=== PATIENT | female | born 1995 | race Caucasian/White ===

== ENCOUNTER 2025-04-18 19:13 | Inpatient (IN) | payer OTHER, SELFPAY ==
[2025-04-18 19:49] VITALS: BP 126/75; BMI 33.0
[2025-04-18] MEDS: PENICILLIN 110 UNITS IV (20:12)
[2025-04-18] MEDS: LR 1000 IV (20:12)
[2025-04-18 20:18] LABS: % Basophils 0.3 % (0-2); % Eosinophils 0.6 % (0-6); % Immature Granulocytes 0.7 % (0-0.5); % Lymphocytes 14.9 % (20.5-51.1); % Monocytes 10.2 % (1.7-9.3); % Neutrophils 73.3 % (42.2-75.2); Absolute Eosinophils 0.1 10^3/uL (0-0.7); Absolute Immature Granulocytes 0.1 10^3/uL (0-0.05); Absolute Lymphocytes 1.6 10^3/uL (1.2-3.4); Absolute Monocytes 1.1 10^3/uL (0.1-0.6); Absolute Neutrophils 7.8 10^3/uL (1.4-6.5); Hematocrit 35.4 % (37.0-47.0); Hemoglobin 12.6 g/dL (12.0-16.0); Mean Corp Hgb Conc. 35.6 g/dL (33.0-37.0); Mean Corpuscular Hgb 32.3 pg (27.0-31.0); Mean Corpuscular Volume 90.8 fL (81.0-99.0); Mean Platelet Volume 10.2 fL (7.4-10.4); Nucleated Red Blood Cells % 0 %; Platelet Count 191 10^3/uL (130-400); Red Cell Dist. Width 12.5 % (11.5-14.5); White Blood Cell Count 10.6 10^3/uL (4.8-10.8)
[2025-04-19] MEDS: PENICILLIN 55 UNITS IV ×5 (00:15→16:16)
[2025-04-19] MEDS: SUBLIMAZE 100 MCG EPIDURAL (03:01)
[2025-04-19] MEDS: FENTANYL/BUPIVACAINE 100 EPIDURAL ×3 (03:02→15:34)
[2025-04-19] MEDS: LR 1000 IV ×2 (03:25→13:54)
[2025-04-19] MEDS: PITOCIN 30 UNITS/NSS 500 ML IV (13:54)
[2025-04-19] MEDS: ANCEF 10 IV (17:16)
[2025-04-19] MEDS: BICITRA 30 ML PO (17:16)
[2025-04-19] MEDS: TYLENOL 1000 MG PO (17:16)
[2025-04-19] MEDS: TORADOL 15 MG IV (20:01)
[2025-04-19] MEDS: FLUSH (NSS) 2 FLUSH IV (20:02)
[2025-04-20] MEDS: TORADOL 15 MG IV ×3 (01:55→14:16)
[2025-04-20 04:51] LABS: Hematocrit 29.2 % (37.0-47.0); Hemoglobin 10.3 g/dL (12.0-16.0); Mean Corp Hgb Conc. 35.3 g/dL (33.0-37.0); Mean Corpuscular Hgb 32.5 pg (27.0-31.0); Mean Corpuscular Volume 92.1 fL (81.0-99.0); Mean Platelet Volume 10.1 fL (7.4-10.4); Platelet Count 155 10^3/uL (130-400); Red Blood Cell Count 3.17 10^6/uL (4.20-5.40); Red Cell Dist. Width 12.5 % (11.5-14.5); White Blood Cell Count 16.8 10^3/uL (4.8-10.8)
[2025-04-20] MEDS: SENOKOT-S 1 TABLET PO (08:21)
[2025-04-20] MEDS: PRENATAL PLUS 1 TABLET PO (08:21)
--- NOTE | 2025-04-20 13:13 | W.PN.ANS.POP ---
Anesthesia Post Operative
- Anesthesia Post Op Note
Vital Signs Stable-See Nursing Note: Yes
Airway Patent: Yes
Adequate Pain Control: Yes
Change in Mental Status: No
Current Postoperative Nausea & Vomiting: No
Anesthesia Complications: No
General Anesthetic Recall: No
Unplanned Admission: No
Post Op Hydration Adequate: Yes
[2025-04-20 13:34] LABS: Syphilis/T. pallidum Ab Reflex Negative (Negative)
[2025-04-20] MEDS: TORADOL IV (20:27)
[2025-04-20] MEDS: MOTRIN 600 MG PO (20:49)
[2025-04-21] MEDS: TYLENOL 650 MG PO ×6 (00:55→23:15)
[2025-04-21] MEDS: MOTRIN 600 MG PO ×4 (02:49→23:15)
[2025-04-21] MEDS: SENOKOT-S 1 TABLET PO (09:05)
[2025-04-21] MEDS: MYLICON 80 MG PO (09:05)
[2025-04-21] MEDS: PRENATAL PLUS 1 TABLET PO (09:06)
[2025-04-22] MEDS: MOTRIN 600 MG PO (05:55)
[2025-04-22] MEDS: TYLENOL 650 MG PO (05:55)
[2025-04-22] MEDS: PRENATAL PLUS 1 TABLET PO (07:36)
[2025-04-22] MEDS: SENOKOT-S 1 TABLET PO (07:36)
--- NOTE | 2025-04-22 10:58 | W.DS.TRANS ---
DC Summary - [facility]
-
Discharge Instructions:
Discharge Diagnosis/Procedures delivered via section
Diet No restrictions
Activity No strenuous activity
Driving Restrictions No driving for 2 weeks
Bathing Restrictions OK to Shower
Instructions:
Stand-Alone Forms: LDRP Delivery
Changes to Home Medications: No
Discharge Medications:
DC Medications w/original date entered in [facility]
prenat.vits,iker,kek-oqsv-nqlqz 1 tab PO DAILY 04/18/25
acetaminophen 325 mg tablet 650 mg (2 x 325 mg) PO Q4HPRN PRN mild pain #1 tab 04/22/25
ibuprofen 600 mg tablet 600 mg PO Q6HPRN PRN cramps #60 tabs 04/22/25
Home Medication Changes
Pending Results: Yes
Additional Pending Results:
placenta path
--- NOTE | 2025-04-22 10:58 | W.DCSUMMARY ---
Discharge Summary
Discharge Data
Date of Admission: 04/18/25
Date of Discharge: 04/22/25
-
Pending Results: Yes
Additional Pending Results:
placenta path
Hospital Course
Patient is a 29yo who presented to labor and delivery on 04/18 at 40.2 with complaints of leakage of fluid. She was found to be grossly ruptured for clear fluid and was 4/70/-2. She was started on PCN for GBS positive status. She was expectantly
managed and progressed to 9cm. She remained 9 for several hours and was started on Pitocin. She progressed to complete. She started pushing and there were late decelerations. Pitocin was turned off. Baby was found to ROP. Patient continued pushing
without Pitocin but contractions spaced out and patient was frustrated. She requested an elective primary section. She was aware that she could continue pushing but still desired a section. She underwent elective primary low
transverse section on 04/20 delivering a viable male infant with Apgars 8/9. The qualitative blood loss was 880mL. The procedure was uncomplicated. On postoperative day one, she was doing well with no complaints. Her hemoglobin was 10.3. She
had no signs or symptoms of anemia. On postoperative day 2, she was complaining of some soreness but overall was doing well. On postoperative day three, she was meeting all postoperative milestones. She was tolerating a regular diet, ambulating,
voiding spontaneously, passing flatus and had no heavy lochia. She was stable for discharge home. Discharge instructions and return precautions reviewed and all questions answered prior to discharge. She was instructed to follow up in 2 weeks for an
incision check.
Discharge Plan
-
Patient Disposition: Home (Routine Discharge)
Discharge Diagnosis/Procedures: delivered via section
Condition: Good
Diet: No restrictions
Activity: No strenuous activity
Driving Restrictions: No driving for 2 weeks
Bathing Restrictions: OK to Shower
Stand Alone Forms: LDRP Delivery
Referrals:
Vaishnavi Marinelli, DO [Active] - in two weeks
NONE,* [Family Provider] -
Prescriptions:
New
acetaminophen 325 mg Tablet
650 mg PO Q4HPRN PRN (Reason: mild pain) Qty: 1 0RF
ibuprofen 600 mg Tablet
600 mg PO Q6HPRN PRN (Reason: cramps) Qty: 60 0RF
Continued
prenat.vits,iker,atv-focs-rnxpi Tablet
1 tab PO DAILY
Discharge Orders:
Discharge Patient (As Directed); Ordered 04/22/25
Ordered By: Gabbie Martínez
Discharge Date and Time
Print Language: POLISH
[2025-04-22] MEDS: ADACEL 0.5 ML IM (11:11)
== END 2025-04-22 11:52 | disposition home or self-care (01) | DRG 788 ==
LOC: LDRP 19:13
PROVIDERS: Obstetrics & Gynecology; ADMITTING PHYSICIAN Obstetrics & Gynecology
PROC: 10D00Z1 Extraction of Products of Conception, Low, Open Approach (ICD-10-PCS; 2025-04-19)
PROC: 3E0234Z Introduction of Serum, Toxoid and Vaccine into Muscle, Percutaneous Approach (ICD-10-PCS; 2025-04-22)
DX: O48.0 Post-term pregnancy (principal); Z3A.40 40 weeks gestation of pregnancy; O99.824 Streptococcus B carrier state complicating childbirth; O76 Abnormality in fetal heart rate and rhythm complicating labor and delivery; O62.1 Secondary uterine inertia; Z37.0 Single live birth; Z23 Encounter for immunization
CPT/HCPCS: 88307; 36415; 85025; 85027; 86780; 86850; 86900; 86901; 90715; C1765

== ENCOUNTER 2025-09-24 06:19 | Emergency (ER) | payer OTHER, SELFPAY ==
[2025-09-24 06:24] VITALS: BP 104/68
--- NOTE | 2025-09-24 06:59 | ED.GENMED ---
History of Present Illness
General
Chief Complaint: Fever
Source: patient and spouse
Exam Limitations: none
Time Seen by Provider: 09/24/25 06:36
Nursing documentation reviewed up to this point in time: agreed with
History of Present Illness
History of Present Illness:
30-year-old female 5 months breast-feeding pain right breast, fever chills with nausea, similar in the past on the left side treated with Keflex with good result onset of symptoms a few hours ago
Past History
Past History
ED Past Medical History: Other (Mastitis)
Social History
Tobacco: Non-smoker
Alcohol: None
Drug: None
Personal:
Living: with family
Review of Systems
Review of Systems
All Other Systems: Not applicable
Constitutional: Reports fever and chills
Respiratory: Denies other
ABD/GI: Reports nausea
Skin: Reports other (Right breast pain)
Phy Exam
Physical Exam
Physical Exam:
Physical Exam
General: no apparent distress, not acutely ill
Neck: No jaw
Heart: s1/s2 regular rate and rhythm, no murmur. equal radial pulses.
Breast: Slight area of erythema warmth without fluctuance at 9:00 lateral to the nipple and areola
Abdomen: Not tender
Neuro: alert and oriented. no focal neurological deficits
Skin: no rash
Psychiatric: well kept. interactive and cooperative
Extremities: no edema.
Course
Orders/Labs/Results
Orders:
Orders
09/24/25 06:31
CONSULT Urgent
Comment: mastitis
09/24/25 06:55
Acetaminophen [Tylenol] 1,000 mg PO NOW STA
Cephalexin Monohydrate [Keflex] 500 mg PO NOW STA
09/24/25 07:19
Dicloxacillin [Dynapen] 500 mg PO NOW STA
Vital Signs
Initial and Last Documented VS:
Initial Vital Signs
Temp Pulse Resp BP Pulse Ox
99.8 F 122 20 104/68 95
09/24/25 06:24 09/24/25 06:24 09/24/25 06:24 09/24/25 06:24 09/24/25 06:24
Last Documented Vital Signs
Temp Pulse Resp BP Pulse Ox
99.8 F 122 20 104/68 95
09/24/25 06:24 09/24/25 06:24 09/24/25 06:24 09/24/25 06:24 09/24/25 06:59
MDM/Problems Addressed
Differential Diagnosis Includes:
Mastitis cellulitis abscess clot
MDM/Problems Addressed:
Fever breast pain
Chronic conditions affecting care:
Prior mastitis
Acute Exacerbation and/or Progression of Chronic Illness:
Prior mastitis
*Pulse Oximetry
SaO2: 95
Oxygen Mode of Delivery: Room air
Patient hypoxic: no
*Critical Care Note
Total Time (30-74mins, 75-104mins- exclusive of procedures): Not Applicable
Update Note
Update Note:
Looks like mastitis patient wondering about different antibiotics and Keflex because because she has had recurrent mastitis, no abscess do not believe she needs MRSA coverage at this point has been at a different site she typically responds to Keflex
Up-to-date reviewed will try dicloxacillin
ED Attending Note
-
Portions of this chart may have been created with voice recognition software.� Occasional wrong word or��sound alike� substitutions may have occurred due to the inherent limitations of voice recognition software.
Discharge Plan
Departure
Patient Disposition: Home (Routine Discharge)
Date of Disposition: 09/24/25
Time of Disposition: 07:21
Patient with high blood pressure during this ER visit?: No
Condition: Good
Discharge Problem:
Mastitis
Prescriptions:
New
dicloxacillin 500 mg capsule
500 mg PO Q6H Qty: 40 0RF
No Action
prenat.vits,iker,ooh-peze-mtwdx Tablet
1 tab PO DAILY
acetaminophen 325 mg Tablet
650 mg PO Q4HPRN PRN (Reason: mild pain) Qty: 1 0RF
ibuprofen 600 mg Tablet
600 mg PO Q6HPRN PRN (Reason: cramps) Qty: 60 0RF
Interventions
Interventions:
*Risk Screen - Suicide Last Done: 09/24/25 06:24
*General Assessment Last Done: 09/24/25 06:24
*Neglect/Abuse Screening Last Done: 09/24/25 06:24
*ED- Fall Risk Assessment Last Done: 09/24/25 06:24
*ED COVID-19 Vaccine History Last Done: 09/24/25 06:24
*ED Influenza Vaccine History Last Done: 09/24/25 06:24
ED- Neurological Assessment Last Done: 09/24/25 06:48
ED-Skin Assessment Last Done: 09/24/25 06:48
Discharge Date and Time
Print Language: NAMIBIAN
[2025-09-24] MEDS: TYLENOL 1000 MG PO (07:07)
[2025-09-24] MEDS: DYNAPEN 500 MG PO (07:38)
--- NOTE | 2025-09-25 15:24 | LACTATION ---
Colleen is her 5 month old son, Barry. She visited the ED yesterday morning (09/24) due to a bout with mastitis. She has had mastitis twice before, both times in her left breast, and was treated with Keflex each time. This time, the
mastitis is in her right breast. She is being treated with dicloxacillin.
Colleen is concerned about her 3 bouts with mastitis and is considering weaning from as being ill every 6 weeks has been very disruptive to her life, making it difficult to care for Barry and she is losing time at work.
Colleen and I tried to get to the bottom of the cause of her recurrent mastitis. Oftentimes, mastitis is caused by overproduction. Colleen seems to be making a normal amount of milk. She nurses Barry on demand and then pumps 1-2 times per day after
. She collects 3-6 oz. of milk with the pump, about an hour after . Barry sometimes takes bottles and takes 3-5 oz.
Barry nurses frequently and doesn�t have any consistent feeding patterns. He sometimes nurses frequently in the overnight hours. It�s possible that Colleen breasts become engorged when Barry nurses frequently for many days and then has a night when
her sleeps better. The fluctuation between hourly feedings for many nights and then Barry sleeping several hours may be a cause of mastitis.
We talked about an option of pumping exclusively to get Colleen on a schedule and then start a weaning process. This may be too difficult as Barry sometimes feeds hourly overnight and may not be soothed easily with a bottle.
Instead we decided to start a weaning process for the daytime feedings and then reassess in a few weeks. I tried to recreate Candie typical day:
A sample feeding schedule:
12a - feed
3a - feed
5a - feed
7a feed
8a - pump
9a - feed
11a - feed
2p - feed
4p - feed
7p feed
8p - pump
Before removing feedings, I suggest removing one or both pumping sessions. If breasts are very uncomfortable, pump for about 5 minutes for comfort.
Wait 1 week so breasts adjust to making less milk.
Once breasts are comfortable, continue the weaning process. Remove one daytime feeding per day and replace it with a bottle. Do not pump. Start with one of the less important feedings. Consider 11am as first one to drop.
Wait 1 week. Remove another feeding.
Sample weaning schedule:
09/26 drop 8pm pump, shorten 8am pump to 5-10 mins
10/03 drop 8am pump
10/10 drop 11am feed. Do not pump unless breasts are painful. If breasts painful, pump 5-10 mins.
10/17 drop 4pm feed. (see above)
10/24 drop 5am feeding.
Pause - you are down to 6 feeds and not pumping sessions reevaluate. Do you want to maintain your supply here? If not continue weaning process
10/31 drop 2pm feed
11/07 drop 12am feed
11/14 drop 9am feed
Pause - you are now down to bedtime, middle of the night snack, and breakfast feedings. Reevaluate if you wish to continue. If so, remove one feeding every 5-7 days.
== END 2025-09-24 08:01 | disposition home or self-care (01) ==
LOC: EMR 06:19
PROVIDERS: EMERGENCY PHYSICIAN Emergency Medicine
DX: N61.0 Mastitis without abscess (principal)
CPT/HCPCS: 99282